=== PATIENT | female | born 1945 | race Caucasian/White ===

== ENCOUNTER → 2020-10-21 | Outpatient (CLI) | payer MEDICARE, BC ==
[2020-10-21 13:26] LABS: BASO # 0.2 x10^3/uL (0.0-0.2); BASO % 1 % (0-3); EOS % 0 % (0-3); HEMATOCRIT 32.8 % (36.0-47.0); HEMOGLOBIN 10.7 g/dL (12.0-15.5); LYMPH # 0.7 x10^3/uL (1.0-4.8); LYMPH % 3 % (24-48); MEAN CORPUSCULAR HEMOGLOBIN 32 pg (25-35); MEAN CORPUSCULAR HGB CONC 33 g/dL (31-37); MEAN CORPUSCULAR VOLUME 99 fL (79-100); MONO % 8 % (0-9); NEUT # 21.7 x10^3/uL (1.8-7.7); NEUT % 88 % (31-73); PLATELET COUNT 136 x10^3/uL (140-400); RED BLOOD COUNT 3.31 x10^6/uL (3.50-5.40); RED CELL DISTRIBUTION WIDTH 28.5 % (11.5-14.5); WHITE BLOOD COUNT 24.6 x10^3/uL (4.0-11.0)
[2020-10-21 13:41] LABS: CALCIUM 8.2 mg/dL (8.5-10.1); CREATININE 1.8 mg/dL (0.6-1.0); GFR 27.6; POTASSIUM 4.2 mmol/L (3.5-5.1)
[2020-10-21 13:42] LABS: ALBUMIN 1.9 g/dL (3.4-5.0); ALBUMIN/GLOBULIN RATIO 0.4 (1.0-1.7); TOTAL BILIRUBIN 2.4 mg/dL (0.2-1.0); TOTAL PROTEIN 6.2 g/dL (6.4-8.2)
[2020-10-21 19:32] LABS: % LYMPHS 3 % (24-48); % METAS 1 % (0-0); % MONOS 7 % (0-10); % SEGS 89 % (35-66)
[2020-10-21 19:35] LABS: PLT ESTIMATE DECREASED (ADEQUATE)
[2020-10-21 19:36] LABS: ANISOCYTOSIS MARKED
[2020-10-21 19:37] LABS: BURR CELLS FEW; TEAR DROP CELLS FEW
[2020-10-21 19:39] LABS: POLYCHROMASIA SLIGHT
[2020-10-21 19:40] LABS: NUCLEATED RBC 2
== END ==
LOC: ONCLAB 13:10
DX: C34.11 Malignant neoplasm of upper lobe, right bronchus or lung (principal)
CPT/HCPCS: 36415; 80053; 83615; 85007; 85025